=== PATIENT | male | born 1930 | race Caucasian/White ===

== ENCOUNTER 2016-12-25 09:33 | Outpatient (CLI) | payer OTHER, MEDICAID ==
[~2016-12-25 09:33] MED LIST: ALFU10TA19 PO; CARV25TA55 PO; DABI150C PO; DIGO125T79 PO; DOCU-144 PO; ECO81 PO; FINA5TAB3 PO; FLUT16SP24 NS; FURO-149 PO; INSU100V11 SQ; METF-510 PO; NAPR-227 PO; OMEG1CAP55 PO; OMEP20CA10 PO; POTA10TA79 PO; SITA100T7 PO
== END 2016-12-25 20:08 | disposition home or self-care (01) ==
LOC: SUS 09:33
PROVIDERS: ATTEND Urology
DX: N13.30 Unspecified hydronephrosis (principal)
CPT/HCPCS: 76770

== ENCOUNTER 2018-06-11 09:35 | Outpatient (CLI) | payer OTHER, MEDICAID ==
[~2018-06-11 09:35] MED LIST changes: +NAPR-1172 PO; -NAPR-227 PO; +POTA10TA11 PO; -POTA10TA79 PO; +SITA100T11 PO; -SITA100T7 PO
== END 2018-06-11 20:01 | disposition home or self-care (01) ==
LOC: SUS 09:35
PROVIDERS: ATTEND Urology
DX: N28.1 Cyst of kidney, acquired (principal); J90 Pleural effusion, not elsewhere classified; N32.0 Bladder-neck obstruction; I10 Essential (primary) hypertension; E11.9 Type 2 diabetes mellitus without complications; M19.90 Unspecified osteoarthritis, unspecified site; N32.89 Other specified disorders of bladder
CPT/HCPCS: 76770